=== PATIENT | male | born 1950 | race Caucasian/White ===

== ENCOUNTER → 2017-05-01 | Outpatient (CLI) | payer MEDICARE, OTHER ==
--- NOTE | 2017-05-01 08:38 | RAD ---
EXAM DESCRIPTION: Hip,Left 2 Views CLINICAL HISTORY: 67 years, Male, PAIN COMPARISON: None TECHNIQUE: AP and frog leg lateral views of the left hip FINDINGS: Two-view left hip shows no fracture or bone lesion. There is no hip joint space abnormality observed. Degenerative changes are seen in the lower L-spine. Bones of the left hemipelvis appear intact. Intact sacrum and proximal femur. Phleboliths in left pelvis are noted. IMPRESSION: Negative for fracture or dislocation. Electronically signed by: Sourav Calvert MD 05/01/2017 8:37 AM [facility]
--- NOTE | 2017-05-01 08:39 | RAD ---
EXAM DESCRIPTION: Hip,Right 2 Views CLINICAL HISTORY: 67 years, Male, PAIN COMPARISON: None TECHNIQUE: AP and frog leg lateral views of the hip FINDINGS: Two-view right hip shows no fracture or bone lesion. There is no hip joint space abnormality observed. Normal bony mineralization and trabecular pattern. Minimal degenerative change in the inferior right SI joint. Sacrum appears intact. Mild degenerative changes at the pubic symphysis. IMPRESSION: Negative for fracture or dislocation. Electronically signed by: Sourav Calvert MD 05/01/2017 8:38 AM [facility]
--- NOTE | 2017-05-01 08:40 | RAD ---
EXAM DESCRIPTION: Pelvis CLINICAL HISTORY: 67 years Male, PAIN COMPARISON: None. TECHNIQUE: Single x-ray view of the pelvis FINDINGS: Degenerative changes are noted in the lower L-spine with vacuum disc phenomenon and prominent spurring at L4-5. Vascular calcifications are seen. Phleboliths in left pelvis. Mild degenerative changes of the inferior SI joints. Hips appear intact. No fracture or dislocation. Normal overall bony mineralization. No osseous lytic lesion. IMPRESSION: Negative for fracture or dislocation. Degenerative changes in lower lumbar spine. Electronically signed by: Sourav Calvert MD 05/01/2017 8:40 AM [facility]
== END ==
LOC: RAD 07:45
PROVIDERS: ATTEND Orthopaedic Surgery
DX: M25.551 Pain in right hip (principal); M25.552 Pain in left hip